=== PATIENT | male | born 1955 | race Caucasian/White ===

== ENCOUNTER 2016-12-19 10:37 | Inpatient (IN) ==
[2016-12-19] MEDS ORDERED: ENOXAPARIN 100 MG/ML SYRINGE SUBCUT STA (11:06)
[2016-12-19] MEDS ORDERED: ASPIRIN 325 MG TABLET PO STA (11:06)
[2016-12-19] MEDS ORDERED: NITROGLYCERIN 2% OINT 1 INCH/GM PACK TOP STA (11:06)
[2016-12-19] MEDS ORDERED: ALUM/MAG/SIMETH/LIDO VISC 1:1 30 ML BOTTLE PO STA (11:06)
[2016-12-19] MEDS ORDERED: ONDANSETRON 4 MG/2 ML VIAL IV PRN (11:06)
[2016-12-19] MEDS ORDERED: NITROGLYCERIN SL 0.4 MG TABLET SL PRN (11:06)
--- NOTE | 2016-12-19 11:09 | Emergency Department Note ---
Arrival - Arrival Chief Complaint: Chest Pain Stated Complaint: blood pressure feels up chest pain ED Nursing Triage Note: pt ambulatory to triage with c/o having chest pain with tightness to left side and left arm pain. pain between shoulder blades. 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 pt states bp has also been elevated at home. Mode of Arrival: Ambulatory Limitations: No Limitations Source: Patient, Family, RN Notes Reviewed Time Seen by Provider: 12/19/16 11:02 - History of Present Illness HPI Narrative: Patient is a 61-year-old white male with no history of coronary artery disease who presents with a left sided chest tightness radiating to his left arm which began 2 days ago after eating. This reoccurred with eating yesterday. The patient denies exertional chest discomfort. He did have some associated nausea and some diaphoresis associated with his pain. His pain is now totally resolved. He denies immediate family history of hyper of coronary artery disease. He denies diabetes mellitus or hypertension. Patient does smoke cigarettes. Onset (ago): day(s) (2) Consistency: intermittent Severity: moderate Quality: aching Allergies/Adverse Reactions: Allergies Allergy/AdvReac Type Severity Reaction Status Date / Time acetaminophen [From [place]] Allergy ITCHING Verified 12/19/16 10:56 hydrocodone [From [place]] Allergy ITCHING Verified 12/19/16 10:56 Home Medications: Home Medications Medication Instructions Recorded Confirmed Type Metoclopramide Tab [Reglan Tab] 5 mg PO ACHS #20 tablet 06/28/16 Rx Polyethylene Glycol Powder 17 gm PO DAILY #12 pack 06/28/16 Rx [Miralax] Review of System - Review of System 12 point system: reviewed and no additional remarkable complaints except as stated - Review of System Constitutional: Present: diaphoresis. Absent: chills, fever Cardiovascular: Present: chest pain. Absent: palpitations Gastrointestinal: Present: abdominal pain, vomiting. Absent: nausea Medical,Surgical,& Family Hx - Medical History Medical History: noncontributory - Surgical History HEENT Surgeries: Surgical HX of: Eye Surgery (CATARACT) - Family History Family History: Reports;: Family Cancer, Family Diabetes, Family Heart Disease, Family Hypertension, Family Stroke - Social History Smoking Status: Current every day smoker Frequency of Alcohol Use: None Type of Drug Use: None Exam Vital Signs: Vital Signs Temperature 98.0 F 12/19/16 12:41 Pulse Rate 95 H 12/19/16 12:41 Respiratory Rate 18 12/19/16 12:41 Blood Pressure 151/93 12/19/16 12:41 O2 Sat by Pulse Oximetry 98 12/19/16 11:28 GENERAL: This is a well-nourished well-developed white male in no apparent distress. VITAL SIGNS: Reviewed HEENT: Head is atraumatic and normocephalic. Pupils are equal round react to light. Extraocular movements are intact. Oropharynx is benign with moist mucous membranes. NECK: Neck is soft and supple without tenderness. There are no masses. There is no lymphadenopathy. LUNGS: Lungs are clear to auscultation. Chest rises symmetrically. There is no chest wall tenderness. CV: Heart is regular rate and rhythm without murmurs rubs or gallops. ABDOMEN: Abdomen is soft, nontender to palpation. There are no abdominal abnormal masses palpated. There is no organomegaly. Bowel sounds are present and active. SKIN: Skin is warm and dry. No rash. EXTREMITIES: Patient has full range of motion without tenderness. There is no pedal edema. NEUROLOGIC: Awake alert and oriented 4. Cranial nerves II through XII are grossly intact. Motor is 5 over 5 in all extremities bilaterally. Course - Consultations Consultation #1: Discussed with cardiology. Patient will be admitted to their service. Patient will be taken to the [facility] for PCI. Time: 13:29 Results - Labs CBC & BMP: 12/19/16 11:50 12/19/16 11:50 Lab Results: I have reviewed the patients labs Labs: Laboratory Tests 12/19/16 11:50 Troponin I 0.351 H - EKG EKG results: interpreted by ERMD - Impressions EKG: Sinus rhythm with marked sinus arrhythmia, rate 84, right bundle branch block, left axis deviation, nonspecific ST-T wave changes - Diagnostic Findings Procedure: Chest x-ray: image reviewed by me (No cardiomegaly, no pleural effusions, no infiltrates.) Disposition Clinical Impression: Chest pain, Unstable angina, Hyperglycemia, Nicotine addiction Case discussed with: patient Disposition: Still a Patient Condition: Stable Additional Instructions: Patient is to discontinue smoking cigarettes.
--- NOTE | 2016-12-19 11:29 | XRay Report ---
Portable chest Date: 12/19/2016 Clinical history: Chest pain Comparison: 12/01/2010 Technique: Portable AP sitting chest Findings: The heart is normal in size. Minimal diffuse parenchymal findings at the lung bases. Minimal relative elevation of the left hemidiaphragm. Stable mediastinum and osseous structures. Impression: Minimal relative elevation of the left hemidiaphragm. Minimal atelectasis/edema at the lung bases. PROCEDURE INTERPRETED AT [facility] DEPARTMENT OF RADIOLOGY Final Report Signed by: Dr. Alisa Avelar
[2016-12-19] MEDS ORDERED: ENOXAPARIN 100 MG/ML SYRINGE SUBCUT ONE (11:38)
[2016-12-19] MEDS ORDERED: NITROGLYCERIN 2% OINT 1 INCH/GM PACK TOP ONE (11:38)
[2016-12-19] MEDS ORDERED: ALUM/MAG/SIMETH/LIDO VISC 1:1 30 ML BOTTLE PO ONE (11:38)
[2016-12-19] MEDS ORDERED: ASPIRIN 325 MG TABLET ONE (11:38)
[2016-12-19 12:02] LABS: Basophils # 0.1 10*3/uL (0.0-0.2); Basophils % 0.7 % (0.0-0.8); Eosinophils # 0.2 10*3/uL (0.0-0.87); Eosinophils % 2.9 % (0.00-10.9); Hematocrit 46.2 VOL% (42.0-52.0); Hemoglobin 16.2 GM/DL (14.0-18.0); Immature Granulocytes % 0.4 %; Immature Granulocytes Absolute 0.03 #; Lymphocytes # 1.5 10*3/uL (1.4-4.0); Lymphocytes % 22.2 % (21.2-54.2); Mean Corpuscular HGB Conc 35.1 GM/DL (32-36); Mean Corpuscular Hemoglobin 30 PG (27-34); Mean Corpuscular Volume 85.7 FL (87-102); Mean Platelet Volume 9.9 FL (9.6-12.0); Monocytes # 0.4 10*3/uL (0.11-0.8); Monocytes % 6.2 % (1.7-12.7); Neutrophils # 4.6 10*3/uL (1.4-7.4); Neutrophils % 67.6 % (38.7-73.9); Platelet Count 236 T/CUMM (130-400); Red Blood Count 5.39 MC/CUMM (3.8-5.5); Red Cell Distribution Width 12.9 % (9.3-17.3); White Blood Count 6.8 T/CUMM (4-12)
[2016-12-19 12:18] LABS: PT Patient Result 10.7 SECS; Partial Thromboplastin Time 27.3 SECS (0-40)
[2016-12-19 12:26] LABS: Apearance,Urine CLEAR (Clear); Bilirubin,Urine Negative (Negative); Blood, Urine Negative (Negative); Glucose,Urine (UA) >=500 mg/dL (Negative); Ketones,Urine Negative (Negative); Mucus,Urine Occasional /LPF (Occasional); Nitrite,Urine Negative (Negative); Protein,Urine Negative; RBC,Urine 1 /HPF (0-4); Urine Color Yellow (Yellow)
[2016-12-19 12:30] LABS: Barbiturates Screen,Urine Negative (Negative); Benzodiazepines Screen,Urine Negative (Negative); Cannabinoid Screen,Urine Negative (Negative); Opiate Screen,Urine Negative (Negative); Phencyclidine Screen,Urine Negative (Negative)
[2016-12-19 12:37] LABS: Albumin 3.6 G/DL (3.4-5.0); Bilirubin,Total 0.4 MG/DL (0.2-1.0); Calcium 9.2 MG/DL (8.5-10.1); Magnesium 2.4 MG/DL (1.8-2.4); Osmolality,Calculated 281.8 MOS/KG (273-304); Potassium 4.2 MMOL/L (3.5-5.1); Total Protein 6.8 G/DL (6.4-8.3)
--- NOTE | 2016-12-19 13:56 | Cardiology History & Physical ---
Assessment and Plan - Time spent with patient Time spent with patient: Greater than 30 minutes Time spent discussing smoking cessation with patient: 3 to 10 minutes (1) Elevated blood pressure reading Status: Acute Assessment and plan: SEE PLAN CARE LISTED BELOW Current Visit: Yes (2) Tobacco abuse Status: Chronic Assessment and plan: SEE PLAN CARE LISTED BELOW Current Visit: Yes (3) Chest pain Status: Acute Assessment and plan: SEE PLAN CARE LISTED BELOW Current Visit: Yes (4) Hyperglycemia Status: Acute Assessment and plan: SEE PLAN CARE LISTED BELOW Current Visit: Yes (5) Nicotine addiction Status: Chronic Assessment and plan: SEE PLAN CARE LISTED BELOW Current Visit: Yes Qualifiers: Nicotine product type: cigarettes History of Present Illness Chief complaint: chest pain History of present illness: [employer]: (NEW) DR. VICENTE Patient is being seen in the emergency department. Mr. Alaniz, 61WM, with risk factors significant for: family history of coronary artery disease, tobaccoism, possible hypertension, possible new onset diabetes. For the past 2 evenings, patient has experienced left-sided chest pain radiating to his neck and down his left arm, described as tightness. This has occurred at various times including with exertion and at rest. Not associated with shortness of breath, nausea or vomiting. Chest discomfort lasted several minutes at a time. He can identify no aggravating nor any alleviating factors. He rates the discomfort as a 7 on a scale of 1-10 and he is currently chest pain-free. He has never experienced this type of discomfort before. Upon arrival to the ER, EKG is abnormal and troponin is elevated at 0.351. He has received Aspirin, Lovenox, low-dose beta-fatemeh, nitro paste, lipid-lowering agent. Of note, patient's d-dimer is 0.8. He has described left lower extremity swelling and pain over the past week. Venous ultrasound is pending. Patient's blood pressure is significantly elevated and they have noted an elevation at home as well. He does not routinely follow up with physicians and therefore does not routinely monitor his blood pressure other than recently. It has been elevated and I suspect, hypertension will be a new diagnosis. Also, patient's blood glucose is 268. He has never had a diagnosis of diabetes. He did eat 2 bowls of frosted flakes and coffee with sugar in it this morning. Will check a hemoglobin A1c for additional information. Dr. Vicente is present. He has seen, examined this patient. He has discussed the case with the patient and his sister. At this time, will keep the patient NPO. and scheduled for cardiac catheterization this afternoon. Continue to cycle cardiac biomarkers, EKG. ASSESSMENT/PLAN: 1. CHEST PAIN - concerning for angina. Troponin elevated 0.3. EKG is abnormal. [facility] cardiac catheterization this afternoon to be performed by Dr. Christina. At this time, due to patient's concern regarding his personal finances, will not order an echocardiogram but may evaluate his LV function with left ventriculogram during cardiac catheterization. 2. ABNORMAL EKG - further work-up to include LHC. 3. ELEVATED BLOOD GLUCOSE - suspicious for new diagnosis of diabetes. Hemoglobin A1c 4. ELEVATED BLOOD PRESSURE - suspicious for new diagnosis of hypertension. Giving beta-fatemeh at this time 5. UNKNOWN LIPID STATUS - lipid profile in the morning. He is being given Atorvastatin now and each evening 6. LEG PAIN AND EDEMA - d-dimer mildly elevated. Currently undergoing venous ultrasound bilateral lower extremity. 7. TOBACCO USE - greater than 5 minutes was spent today discussing the merits of tobacco cessation Home Medications Medication Instructions Recorded Confirmed Type Metoclopramide Tab [Reglan Tab] 5 mg PO ACHS #20 tablet 06/28/16 Rx Polyethylene Glycol Powder 17 gm PO DAILY #12 pack 06/28/16 Rx [Miralax] Allergies Allergy/AdvReac Type Severity Reaction Status Date / Time acetaminophen [From [place]] Allergy ITCHING Verified 12/19/16 10:56 hydrocodone [From [place]] Allergy ITCHING Verified 12/19/16 10:56 Review of systems: REVIEW OF SYSTEMS: - Constitutional Constitutional: Present: Fatigue. Absent: syncope, anorexia, night sweats - EENT Eyes: Absent: blurry vision, loss of vision, diplopia Ears: Absent: decreased hearing, ear pain, ear discharge - Cardiovascular Cardiovascular: Present: chest pain with exertion and at rest. Recent edema left lower extremity, pain. Denies dyspnea on exertion, palpitations. Absent: chest pain with deep breath, claudication - Respiratory Respiratory: Denies: RAMON, cough. Absent: wheezing, hemoptysis, change in phlegm color - Gastrointestinal Gastrointestinal: Present: constipation. Absent: abdominal pain, hematemesis , hematochezia, melena, change in bowel habits, nausea - Genitourinary Genitourinary: Absent: difficulty urinating, dysuria, urinary hesitancy, flank pain - Musculoskeletal Musculoskeletal: Present: back pain Absent: joint swelling, muscle cramps, muscle weakness - Neurological Neurological: Present: normal gait without frequent falls. Absent: dizziness, hemiparesis - Psychiatric Psychiatric: Absent: anxiety, depression, difficulty concentrating - Endocrine Endocrine: Present: fatigue. Absent: cold intolerance, heat intolerance, polyuria, polyphagia, polydipsia - Hematologic/Lymphatic Hematologic/Lymphatic: Present: easy bruising. Absent: easy bleeding -Integumentary Integumentary: Absent: lesions, rashes, skin breakdown Medical,Surgical,& Family Hx - Medical History Cardio: No history of: CAD, Hypertension, ND Endocrine: No history of: Diabetes Mellitus (IDDM) - Surgical History HEENT Surgeries: Surgical HX of: Eye Surgery (CATARACT) - Family History Family History: Reports;: Family Cancer, Family Diabetes, Family Heart Disease, Family Hypertension, Family Stroke - Social History Smoking Status: Current every day smoker Have you smoked in the last 12 months: Yes Time spent discussing smoking cessation with patient: 3 to 10 minutes Frequency of Alcohol Use: None Type of Drug Use: None Marital Status: Single Lives With:: Alone Functional capacity: independent ambulation Cardiology Physical Exam - Constitutional Vitals: Vital Signs Temp Pulse Resp BP Pulse Ox 98.0 F 95 H 18 151/93 98 12/19/16 12:41 12/19/16 12:41 12/19/16 12:41 12/19/16 12:41 12/19/16 11:28 Intake and Output 12/18/16 12/19/16 12/19/16 23:59 07:59 15:59 Other: Weight 93.44 kg Patient Weight 12/19/16 23:59 Weight 93.44 kg Exam: General: [Appears well with no apparent distress.] [Pleasant and cooperative. ] [Appears comfortable.] HEENT: [PERRL, normocephalic, atraumatic. Mucous membranes moist. No jaundice noted. Conjunctiva moist and clear, sclerae anicteric] Neck: No JVD/HJR, no thyromegaly or lymphadenopathy noted. No carotid bruit appreciated Cardiac: [Regular rate and rhythm.] [No obvious murmur rub or gallop.] Lungs: [Clear to auscultation without accessory muscle use to assist the respiratory pattern.] Not requiring oxygen Abdomen: Soft, bowel sounds normoactive. Nontender and nondistended. No abdominal bruit or thrill noted. No masses noted. Musculoskeletal: No fluid collection. Decreased range of motion is noted. Extremities: No clubbing, cyanosis noted. [Trace left lower extremity edema noted, tenderness to touch.] Upper extremity pulses 2+. Lower extremity pulses 2+. Capillary refill less than 3 seconds. Skin: No unusual lesions or rashes. No skin breakdown appreciated. Neuro: Awake, alert and oriented 3. Moves all extremities well without hemiparesis or paralysis. No essential tremor is appreciated. Result/EKG - Labs CBC & BMP: 12/19/16 11:50 12/19/16 11:50 Lab Results: I have reviewed the past 24 hour labs Labs: Laboratory Results - last 24 hr 12/19/16 12/19/16 12/19/16 11:50 11:50 11:50 WBC 6.8 RBC 5.39 Hgb 16.2 Hct 46.2 MCV 85.7 L MCH 30 MCHC 35.1 RDW 12.9 Plt Count 236 MPV 9.9 Neut % (Auto) 67.6 Lymph % (Auto) 22.2 [place] % (Auto) 6.2 Eos % (Auto) 2.9 Baso % (Auto) 0.7 Neut # (Auto) 4.6 Lymph # (Auto) 1.5 [place] # (Auto) 0.4 Eos # (Auto) 0.2 Baso # (Auto) 0.1 Immature Gran % 0.4 Nucleated RBC % 0.0 Immature Gran # 0.03 Nucleated RBCs # 0.00 Immature Plt Fraction 0.0 INR 1.0 PT Patient/Control Mix 10.7 Circ Anticoag PTT 27.3 Sodium 137 Potassium 4.2 Chloride 105 Carbon Dioxide 27 Anion Gap 9.2 BUN 12 Creatinine 1.10 GFR Calculation 91 BUN/Creatinine Ratio 10.00 Glucose 268 H Calculated Osmolality 281.8 Calcium 9.2 Magnesium 2.4 Total Bilirubin 0.40 AST 17 ALT 26 Alkaline Phosphatase 74 Troponin I Total Protein 6.8 Albumin 3.6 Globulin 3.2 Albumin/Globulin Ratio 1.1 Urine Color Urine Appearance Urine pH Ur Specific [place] Urine Protein Urine Glucose (UA) Urine Ketones Urine Blood Urine Nitrate Urine Bilirubin Urine Urobilinogen Urine Leukocytes Urine RBC Urine Mucus Ur Culture Indicated? Urine Opiates Screen Ur Barbiturates Screen Ur Phencyclidine Scrn U Amphetamine/Methamph U Benzodiazepines Scrn U Cocaine Metab Screen U Cannabinoids Screen 12/19/16 12/19/16 12/19/16 11:50 12:12 12:12 WBC RBC Hgb Hct MCV MCH MCHC RDW Plt Count MPV Neut % (Auto) Lymph % (Auto) [place] % (Auto) Eos % (Auto) Baso % (Auto) Neut # (Auto) Lymph # (Auto) [place] # (Auto) Eos # (Auto) Baso # (Auto) Immature Gran % Nucleated RBC % Immature Gran # Nucleated RBCs # Immature Plt Fraction INR PT Patient/Control Mix Circ Anticoag PTT Sodium Potassium Chloride Carbon Dioxide Anion Gap BUN Creatinine GFR Calculation BUN/Creatinine Ratio Glucose Calculated Osmolality Calcium Magnesium Total Bilirubin AST ALT Alkaline Phosphatase Troponin I 0.351 H Total Protein Albumin Globulin Albumin/Globulin Ratio Urine Color Yellow Urine Appearance Clear Urine pH 6.0 Ur Specific [place] 1.020 Urine Protein Negative Urine Glucose (UA) >=500 Urine Ketones Negative Urine Blood Negative Urine Nitrate Negative Urine Bilirubin Negative Urine Urobilinogen 4.0 H Urine Leukocytes Negative Urine RBC 1 Urine Mucus Occasional Ur Culture Indicated? Not indicated Urine Opiates Screen Negative Ur Barbiturates Screen Negative Ur Phencyclidine Scrn Negative U Amphetamine/Methamph Negative U Benzodiazepines Scrn Negative U Cocaine Metab Screen Negative U Cannabinoids Screen Negative - Diagnostic Findings Procedure: Chest x-ray: report reviewed by me - EKG EKG results: interpreted by me EKG shows: sinus rhythm
[2016-12-19] MEDS ORDERED: MAGNESIUM SULF RIDER 2 GM in PREMIX 1 EACH IV PRN (14:00)
[2016-12-19] MEDS ORDERED: POTASSIUM CHLORIDE 20 MEQ TABLET PO PRN (14:00)
[2016-12-19] MEDS ORDERED: ATORVASTATIN 40 MG TABLET PO ONE (14:06)
[2016-12-19] MEDS ORDERED: METOPROLOL SUCCINATE XL 25 MG TABLET PO ONE (14:08)
--- NOTE | 2016-12-19 14:15 | EKG Report ---
Stationary ECG Study [facility] ER Test Date: 12/19/2016 2:13:11 PM Pat Name: ARABELLA LY Department: Room: 114 Gender: M Or Manager: : 1955 Requested by: Juan Manuel Huang Order Number: [id number] Reading MD: JOSE GRAMAJO Intervals [place] Rate: 75 P: 21 NM: 153 QRS: -43 QRSD: 112 T: -7 QT: 378 QTc: 406 Interpretive Statements SINUS RHYTHM MARKED LEFT AXIS DEVIATION INCOMPLETE RIGHT BUNDLE BRANCH BLOCK Electronically Signed On 12-20-16 15:50:26 CDT by JOSE GRAMAJO [email or web address]
[2016-12-19] MEDS ORDERED: ATORVASTATIN 40 MG TABLET ONE (14:23)
--- NOTE | 2016-12-19 14:24 | Ultrasound Report ---
US venous doppler LE BI Indication: Lower extremity swelling and pain. Comparison: None. Technique: Using a transcutaneous probe, grayscale, spectral Doppler, and color Doppler images of the bilateral lower extremity venous structures were captured and stored. Grayscale images prior to and following compression were obtained. Interrogated venous structures include the bilateral common femoral vein, superficial femoral vein (proximal, mid, and distal), and popliteal vein. Findings: There is no evidence of thrombus within the interrogated venous structures. the interrogated venous segments demonstrate presence of both color flow and spectral flow. Impression: 1. No evidence of venous thrombosis. 12/19/2016 2:21 PM PROCEDURE INTERPRETED AT [facility] DEPARTMENT OF RADIOLOGY Final Report Signed by: Dr. Victor M Arnold
[2016-12-19] MEDS ORDERED: LIDOCAINE 1% 20 ML VIAL ONE (14:28)
[2016-12-19] MEDS ORDERED: HEPARIN/NACL 0.9% 2 UNITS/ML 1,000 ML IV ONE (14:28)
--- NOTE | 2016-12-19 15:08 | History and Physical Update ---
Sedation H&P Update - History and Physical H&P was reviewed, the patient examined and there: are no changes in the patients condition since last H&P was completed. - Dictation Physical: refer to scanned H&P - Physical Exam Mental Status: alert and oriented Heart: regular rate and rhythm Lung: clear to auscultation Abdomen: within normal limits Vitals: within normal limits - Sedation Plan for Sedation: moderate Patient Consent: Procedure disscussed with patient and patinet has consented., Risks and benefits were discussed with patient,including infection,, bleeding, injury to surrounding structures, seizure, temporary nerve, Patient understands and accepts potential risks/benefits and agrees to, proceed. ASA Class: II Airway Assessment: Class II: Soft palate, uvula, fauces visible
[2016-12-19] MEDS ORDERED: BIVALIRUDIN 250 MG VIAL IV ONE (15:34)
[2016-12-19] MEDS ORDERED: NITROGLYCERIN DRIP 50 MG/250 ML BOTTLE IV ONE (16:08)
[2016-12-19] MEDS ORDERED: TICAGRELOR 90 MG TABLET ONE (16:19)
[2016-12-19] MEDS ORDERED: MORPHINE 10 MG/1 ML VIAL ONE (16:32)
--- NOTE | 2016-12-19 16:35 | EKG Report ---
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
[2016-12-19] MEDS: NITROGLYCERIN DRIP 50 MG/250 ML BOTTLE IV SCH (16:42)
--- NOTE | 2016-12-19 17:03 | Cardiac Catheterization ---
Date of Procedure:: 12/19/16 Pre-op Diagnosis: Chest pain non-Q-wave SD Post-op diagnosis: same Implants: Successful proximal LAD stent 3.0 x 18 mm synergy drug-eluting, postdilated 14 socorro creating a 3.15 mL lumen. Successful immediate stent 3.0 x 12 mm synergy drug-eluting stent, postdilated 16 socorro creating a 3.21 mm lumen. Good result obtained. Anesthesia: moderate conscious sedation Surgeon / Physician: Lasha Christina Estimated blood loss: minimal Specimens: none sent Condition: stable Disposition: ICU/CCU - Discharge Disposition: Still a Patient Condition at Discharge: Stable - Medications / Follow-up
--- NOTE | 2016-12-19 17:16 | Cardiology Operative Report ---
Date of Procedure:: 12/19/16 Post-op diagnosis: same Procedure: Cardiac catheterization procedure note #1 left heart catheterization #2 selective coronary angiography #3 left ventriculography #4 successful proximal LAD stent #5 successful ostial intermediate stent Omnipaque was used for the procedure Description of procedure The patient presented with chest pain and a non-Q-wave AL and was taken to the [facility]. Following sterile preparation draping of the right groin local anesthesia was achieved by infiltration 1% Xylocaine. Using a Cook needle the right femoral artery was cannulated and a #6 sheath was inserted. A 6 Japanese pigtail catheter was advanced retrograde across aortic valve into the left ventricle and the end-diastolic pressure was recorded. Left ventriculography was performed the ROSARIO projection using 24 cc of contrast. A pullback was made across aortic valve. The pigtail catheter was exchanged for a 6 Japanese left Santos catheter and left coronary angiography was performed in several ROSARIO and KYRGYZ projections. The catheter change for a 6 Japanese right Amplatz catheter and right coronary angiography was performed in the KYRGYZ projection only. The catheter was exchanged for a 6 Japanese left Santos guiding catheter and the left main was recannulated. The patient received aspirin and Lovenox. A low water flex wire was used and advanced in this LAD. Direct stenting was performed in the proximity using a 3.0 x 18 mm synergy drug-eluting stent. The maximum inflation pressure was at 14 socorro for 30 seconds, creating a 3.15 mm lumen. The balloon was then deflated and brought back to the guiding catheter guidewire across the lesion repeat angiography widely patent vessel with absent narrowing no dissection and brisk runoff. The guide was then redirected into the intermediate branch and direct stenting was performed with a 3.0 x 12 motor synergy drug-eluting stent. The maximum inflation pressure was 16 and measures for 30 seconds, creating a 3.21 mm lumen. The balloon was then deflated and brought back to the guiding catheter going to guidewire across the lesion. Repeat angiograms a widely patent vessel with brisk runoff no dissection. there was some plaque shift into the proximal LAD which was mild. The guiding catheter and sheath were then removed and the femoral arteriotomy site was sealed percutaneously minx closure device with prompt cessation of bleeding and probably turn up from 1 foot pulses. The patient transported to CCU in stable condition. Hemodynamic data Aortic pressure 101/55 mean 72 left ventricle 101/10 Selective coronary angiography The left main trunk is widely patent and trifurcates. The LAD is a large vessel wraps on the apex. There is an 80% stenosis after the first septal and diagonal branch. The diagonal branch is patent. There is severe apical LAD disease. The intermediate branch has a 99% ostial stenosis and is quite hazy with FELIZ grade II flow. The circumflex is large and tortuous and has mild irregularities only. The dominant right coronary has a 80% ostial narrowing and an 80% stenosis of the mid vessel. Left ventriculography Ejection fraction 50-55% with inferoapical hypokinesis. No mitral regurgitation. Conclusions #1 LVEDP 10 #2 ejection fraction 50-55% with inferoapical hypokinesis #3 no mitral regurgitation #4 no aortic valve gradient #5 left main trunk-patent #6 LAD-80% proximal after first septal diagonal #7 diagonal branch-patent #8 intermediate branch-99% ostial stenosis, hazy with FELIZ grade II flow #9 circumflex system-large, tortuous, mild irregularities only #10 dominant right coronary-80% ostial and 80% mid stenosis #11 successful proximal LAD stent. An 80% stenosis reduced to mild irregularities with a 3.0 x 18 mm synergy drug-eluting stent. The maximum inflation pressure was 14 socorro for 30 seconds, creating a 3.15 mm lumen. Good result obtained. #12 successful intermediate stent. A 99% ostial hazy stenosis was reduced to mild irregularities with a 3.0 x 12 mm synergy drug-eluting stent, maximum inflation pressure 16 diameters for 30 seconds, creating a 3.21 mm lumen. FELIZ grade III flow restored. Disposition The patient had a small non-Q-wave infarction involving the large intermediate branch which was stented with a 3.0 x 12 mm Synergy drug-coated stent, postdilated 3.21 mm lumen with christianity of FELIZ grade III flow. He also underwent stenting of the proximal LAD with a 3.0 x 18 mm Synergy drug-eluting stent, postdilated 3.15 mm lumen. He will remain on Lovenox and IV nitro and normal saline hydration. He will be brought back to the [facility] for RCA intervention in the next 24-48 hours. Continue aspirin Brilinta and statin therapy. Cine pictures reviewed with his 2 sisters. In addition, he will require aggressive lifestyle change and risk factor modification. -99% ostial stenosis Anesthesia: moderate conscious sedation Surgeon / Physician: Lasha Christina Estimated blood loss: minimal Specimens: none sent Condition: stable Disposition: ICU/CCU
[2016-12-19] MEDS ORDERED: ACETAMINOPHEN 325 MG TABLET PO PRN (17:17)
[2016-12-19] MEDS ORDERED: ZALEPLON 5 MG CAPSULE PO PRN (17:17)
[2016-12-19] MEDS: SODIUM CHLORIDE 0.9% 1,000 ML IV SCH (19:10)
[2016-12-19] MEDS: PANTOPRAZOLE 40 MG TABLET PO SCH (19:10)
[2016-12-19] MEDS: TICAGRELOR 90 MG TABLET PO SCH (22:26)
[2016-12-19] MEDS: ATORVASTATIN 20 MG TABLET PO SCH (22:26)
[2016-12-20] MEDS: CLORAZEPATE 7.5 MG TABLET PO PRN ×2 (00:57→19:34)
[2016-12-20 03:02] LABS: Basophils # 0.1 10*3/uL (0.0-0.2); Basophils % 0.5 % (0.0-0.8); Eosinophils # 0.2 10*3/uL (0.0-0.87); Eosinophils % 1.8 % (0.00-10.9); Hematocrit 39.2 VOL% (42.0-52.0); Hemoglobin 13.9 GM/DL (14.0-18.0); Immature Granulocytes % 0.3 %; Immature Granulocytes Absolute 0.03 #; Lymphocytes # 1.2 10*3/uL (1.4-4.0); Lymphocytes % 11.6 % (21.2-54.2); Mean Corpuscular HGB Conc 35.5 GM/DL (32-36); Mean Corpuscular Hemoglobin 30 PG (27-34); Monocytes # 0.8 10*3/uL (0.11-0.8); Monocytes % 8.5 % (1.7-12.7); Neutrophils # 7.7 10*3/uL (1.4-7.4); Neutrophils % 77.3 % (38.7-73.9); Platelet Count 209 T/CUMM (130-400); Red Blood Count 4.61 MC/CUMM (3.8-5.5); White Blood Count 9.9 T/CUMM (4-12)
[2016-12-20] MEDS: SODIUM CHLORIDE 0.9% 1,000 ML IV SCH (03:03)
[2016-12-20 03:30] LABS: Calcium 8.1 MG/DL (8.5-10.1); Osmolality,Calculated 278.5 MOS/KG (273-304); Potassium 4.1 MMOL/L (3.5-5.1)
[2016-12-20 03:37] LABS: Albumin 3.1 G/DL (3.4-5.0); Bilirubin,Total 0.6 MG/DL (0.2-1.0); Calcium 8.2 MG/DL (8.5-10.1); Osmolality,Calculated 277.7 MOS/KG (273-304); Potassium 4.1 MMOL/L (3.5-5.1); Risk Ratio 8.85; Total Protein 5.6 G/DL (6.4-8.3); VLDL CHOLESTEROL 64.6 MG/DL
[2016-12-20 03:46] LABS: Troponin I Only 0.721 NG/ML (0.00-0.045)
[2016-12-20] MEDS: traMADol 50 MG TABLET PO PRN ×2 (05:44→19:33)
--- NOTE | 2016-12-20 06:04 | EKG Report ---
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
--- NOTE | 2016-12-20 06:44 | Cardiology Progress Note ---
Cardiology - PN: Subj Interval history: Cardiology note 61-year-old man status post non-Q-wave infarction. Status post intermediate branch stent and proximal LAD stent yesterday. Ejection fraction 50-55%. No chest pain last night. On IV nitro. Telemetry shows steady sinus rhythm O2 sat 97 on 2 L cannula Regular rhythm no murmur or gallop Decreased breath sounds but fairly clear Abdomen benign. Right groin has small ecchymotic bruise but no bruit or hematoma Lab data today White count 9.9 hemoglobin 13.9 hematocrit 39.2 Sodium 139 potassium 4.1 chloride 109 CO2 23 BUN 11 creatinine 0.90 Troponin I 0.040 HDL 20 LDL 114 cholesterol 177 triglycerides 323 Impression Status post small posterior non-Q-wave infarction Status post intermediate branch stent and proximal LAD stent with EF 50-55% Active smoker Hyperlipidemia Hypertension Plan Continue IV nitro continue normal saline Stent RCA today. Discussed with patient and his sister Quin. Nurse present for the entire discussion. Continue Brilinta 90 mg twice daily and aspirin 81 mg daily Continue atorvastatin 20 mg daily Exam (Progress Note) - Constitutional Vitals: Period Temp Pulse Resp BP Sys/Stahl Pulse Ox Last 24 Hr 97.9 F-99.6 F 52-95 10-21 98-187/51-94 94-100 Result/EKG - Labs CBC & BMP: 12/20/16 02:45 12/20/16 02:45 Labs: Laboratory Results - last 24 hr 12/19/16 12/19/16 12/19/16 11:50 11:50 11:50 WBC 6.8 RBC 5.39 Hgb 16.2 Hct 46.2 MCV 85.7 L MCH 30 MCHC 35.1 RDW 12.9 Plt Count 236 MPV 9.9 Neut % (Auto) 67.6 Lymph % (Auto) 22.2 [place] % (Auto) 6.2 Eos % (Auto) 2.9 Baso % (Auto) 0.7 Neut # (Auto) 4.6 Lymph # (Auto) 1.5 [place] # (Auto) 0.4 Eos # (Auto) 0.2 Baso # (Auto) 0.1 Immature Gran % 0.4 Nucleated RBC % 0.0 Immature Gran # 0.03 Nucleated RBCs # 0.00 Immature Plt Fraction 0.0 INR 1.0 PT Patient/Control Mix 10.7 D-Dimer, Quantitative Circ Anticoag PTT 27.3 Sodium 137 Potassium 4.2 Chloride 105 Carbon Dioxide 27 Anion Gap 9.2 BUN 12 Creatinine 1.10 GFR Calculation 91 BUN/Creatinine Ratio 10.00 Glucose 268 H Hemoglobin A1c Calculated Osmolality 281.8 Calcium 9.2 Magnesium 2.4 Total Bilirubin 0.40 AST 17 ALT 26 Alkaline Phosphatase 74 Total Creatine Kinase CK-MB (CK-2) Troponin I Total Protein 6.8 Albumin 3.6 Globulin 3.2 Albumin/Globulin Ratio 1.1 Triglycerides Cholesterol LDL Cholesterol VLDL Cholesterol HDL Cholesterol Heart Disease Risk Ratio Urine Color Urine Appearance Urine pH Ur Specific Export Urine Protein Urine Glucose (UA) Urine Ketones Urine Blood Urine Nitrate Urine Bilirubin Urine Urobilinogen Urine Leukocytes Urine RBC Urine Mucus Ur Culture Indicated? Urine Opiates Screen Ur Barbiturates Screen Ur Phencyclidine Scrn U Amphetamine/Methamph U Benzodiazepines Scrn U Cocaine Metab Screen U Cannabinoids Screen 12/19/16 12/19/16 12/19/16 11:50 11:50 11:50 WBC RBC Hgb Hct MCV MCH MCHC RDW Plt Count MPV Neut % (Auto) Lymph % (Auto) [place] % (Auto) Eos % (Auto) Baso % (Auto) Neut # (Auto) Lymph # (Auto) [place] # (Auto) Eos # (Auto) Baso # (Auto) Immature Gran % Nucleated RBC % Immature Gran # Nucleated RBCs # Immature Plt Fraction INR PT Patient/Control Mix D-Dimer, Quantitative 0.8 Circ Anticoag PTT Sodium Potassium Chloride Carbon Dioxide Anion Gap BUN Creatinine GFR Calculation BUN/Creatinine Ratio Glucose Hemoglobin A1c 6.9 H Calculated Osmolality Calcium Magnesium Total Bilirubin AST ALT Alkaline Phosphatase Total Creatine Kinase CK-MB (CK-2) Troponin I 0.351 H Total Protein Albumin Globulin Albumin/Globulin Ratio Triglycerides Cholesterol LDL Cholesterol VLDL Cholesterol HDL Cholesterol Heart Disease Risk Ratio Urine Color Urine Appearance Urine pH Ur Specific Export Urine Protein Urine Glucose (UA) Urine Ketones Urine Blood Urine Nitrate Urine Bilirubin Urine Urobilinogen Urine Leukocytes Urine RBC Urine Mucus Ur Culture Indicated? Urine Opiates Screen Ur Barbiturates Screen Ur Phencyclidine Scrn U Amphetamine/Methamph U Benzodiazepines Scrn U Cocaine Metab Screen U Cannabinoids Screen 12/19/16 12/19/16 12/19/16 12:12 12:12 18:00 WBC RBC Hgb Hct MCV MCH MCHC RDW Plt Count MPV Neut % (Auto) Lymph % (Auto) [place] % (Auto) Eos % (Auto) Baso % (Auto) Neut # (Auto) Lymph # (Auto) [place] # (Auto) Eos # (Auto) Baso # (Auto) Immature Gran % Nucleated RBC % Immature Gran # Nucleated RBCs # Immature Plt Fraction INR PT Patient/Control Mix D-Dimer, Quantitative Circ Anticoag PTT Sodium Potassium Chloride Carbon Dioxide Anion Gap BUN Creatinine GFR Calculation BUN/Creatinine Ratio Glucose Hemoglobin A1c Calculated Osmolality Calcium Magnesium Total Bilirubin AST ALT Alkaline Phosphatase Total Creatine Kinase 77 CK-MB (CK-2) 2.0 Troponin I 1.040 H D Total Protein Albumin Globulin Albumin/Globulin Ratio Triglycerides Cholesterol LDL Cholesterol VLDL Cholesterol HDL Cholesterol Heart Disease Risk Ratio Urine Color Yellow Urine Appearance Clear Urine pH 6.0 Ur Specific Export 1.020 Urine Protein Negative Urine Glucose (UA) >=500 Urine Ketones Negative Urine Blood Negative Urine Nitrate Negative Urine Bilirubin Negative Urine Urobilinogen 4.0 H Urine Leukocytes Negative Urine RBC 1 Urine Mucus Occasional Ur Culture Indicated? Not indicated Urine Opiates Screen Negative Ur Barbiturates Screen Negative Ur Phencyclidine Scrn Negative U Amphetamine/Methamph Negative U Benzodiazepines Scrn Negative U Cocaine Metab Screen Negative U Cannabinoids Screen Negative 12/20/16 12/20/16 12/20/16 02:45 02:45 02:45 WBC 9.9 D RBC 4.61 Hgb 13.9 L D Hct 39.2 L MCV 85.0 L MCH 30 MCHC 35.5 RDW 13.0 Plt Count 209 MPV 10.0 Neut % (Auto) 77.3 H Lymph % (Auto) 11.6 L [place] % (Auto) 8.5 Eos % (Auto) 1.8 Baso % (Auto) 0.5 Neut # (Auto) 7.7 H Lymph # (Auto) 1.2 L [place] # (Auto) 0.8 Eos # (Auto) 0.2 Baso # (Auto) 0.1 Immature Gran % 0.3 Nucleated RBC % 0.0 Immature Gran # 0.03 Nucleated RBCs # 0.00 Immature Plt Fraction 0.0 INR PT Patient/Control Mix D-Dimer, Quantitative Circ Anticoag PTT Sodium 138 Potassium 4.1 Chloride 108 H Carbon Dioxide 23 Anion Gap 11.1 BUN 11 Creatinine 0.90 GFR Calculation 119 BUN/Creatinine Ratio 12.00 Glucose 166 H Hemoglobin A1c Calculated Osmolality 277.7 Calcium 8.2 L Magnesium Total Bilirubin 0.60 AST 17 ALT 21 Alkaline Phosphatase 63 Total Creatine Kinase 58 D CK-MB (CK-2) 1.8 Troponin I 0.721 H D Total Protein 5.6 L Albumin 3.1 L Globulin 2.5 Albumin/Globulin Ratio 1.2 Triglycerides 323 H Cholesterol 177 LDL Cholesterol 114.0 VLDL Cholesterol 64.6 HDL Cholesterol 20 L Heart Disease Risk Ratio 8.85 Urine Color Urine Appearance Urine pH Ur Specific Export Urine Protein Urine Glucose (UA) Urine Ketones Urine Blood Urine Nitrate Urine Bilirubin Urine Urobilinogen Urine Leukocytes Urine RBC Urine Mucus Ur Culture Indicated? Urine Opiates Screen Ur Barbiturates Screen Ur Phencyclidine Scrn U Amphetamine/Methamph U Benzodiazepines Scrn U Cocaine Metab Screen U Cannabinoids Screen 12/20/16 02:45 WBC RBC Hgb Hct MCV MCH MCHC RDW Plt Count MPV Neut % (Auto) Lymph % (Auto) [place] % (Auto) Eos % (Auto) Baso % (Auto) Neut # (Auto) Lymph # (Auto) [place] # (Auto) Eos # (Auto) Baso # (Auto) Immature Gran % Nucleated RBC % Immature Gran # Nucleated RBCs # Immature Plt Fraction INR PT Patient/Control Mix D-Dimer, Quantitative Circ Anticoag PTT Sodium 139 Potassium 4.1 Chloride 109 H Carbon Dioxide 23 Anion Gap 11.1 BUN 11 Creatinine 0.90 GFR Calculation 119 BUN/Creatinine Ratio 12.00 Glucose 161 H Hemoglobin A1c Calculated Osmolality 278.5 Calcium 8.1 L Magnesium Total Bilirubin AST ALT Alkaline Phosphatase Total Creatine Kinase CK-MB (CK-2) Troponin I Total Protein Albumin Globulin Albumin/Globulin Ratio Triglycerides Cholesterol LDL Cholesterol VLDL Cholesterol HDL Cholesterol Heart Disease Risk Ratio Urine Color Urine Appearance Urine pH Ur Specific Export Urine Protein Urine Glucose (UA) Urine Ketones Urine Blood Urine Nitrate Urine Bilirubin Urine Urobilinogen Urine Leukocytes Urine RBC Urine Mucus Ur Culture Indicated? Urine Opiates Screen Ur Barbiturates Screen Ur Phencyclidine Scrn U Amphetamine/Methamph U Benzodiazepines Scrn U Cocaine Metab Screen U Cannabinoids Screen Quality Measures - VTE Contraindication to Mechanical VTE Prophylaxis: Trauma to Legs - Stroke Symptom Onset Unknown: No
--- NOTE | 2016-12-20 06:45 | History and Physical Update ---
Sedation H&P Update - History and Physical H&P was reviewed, the patient examined and there: are no changes in the patients condition since last H&P was completed. - Dictation Physical: refer to H&P completed by admitting physician - Physical Exam Mental Status: alert and oriented Heart: regular rate and rhythm Lung: clear to auscultation Abdomen: within normal limits Vitals: within normal limits - Sedation Plan for Sedation: moderate Patient Consent: Procedure disscussed with patient and patinet has consented., Risks and benefits were discussed with patient,including infection,, bleeding, injury to surrounding structures, seizure, temporary nerve, Patient understands and accepts potential risks/benefits and agrees to, proceed. ASA Class: II Airway Assessment: Class II: Soft palate, uvula, fauces visible
--- NOTE | 2016-12-20 07:51 | EKG Report ---
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
[2016-12-20] MEDS: NITROGLYCERIN DRIP 50 MG/250 ML BOTTLE IV SCH ×2 (08:36→18:04)
[2016-12-20] MEDS ORDERED: traMADol 50 MG TABLET PO SCH (09:00)
[2016-12-20] MEDS ORDERED: HEPARIN/NACL 0.9% 2 UNITS/ML 0 ML IV ONE (09:01)
[2016-12-20] MEDS ORDERED: LIDOCAINE 1% 20 ML VIAL ONE ×2 (09:01→10:16)
[2016-12-20] MEDS ORDERED: DIAZEPAM 5 MG TABLET PO ONE (09:16)
[2016-12-20] MEDS ORDERED: diphenhydrAMINE CAP 50 MG CAPSULE PO ONE (09:17)
[2016-12-20] MEDS: ASPIRIN EC 81 MG TABLET PO SCH (09:35)
[2016-12-20] MEDS: TICAGRELOR 90 MG TABLET PO SCH ×3 (09:35→20:49)
[2016-12-20] MEDS: PANTOPRAZOLE 40 MG TABLET PO SCH (09:35)
[2016-12-20 10:14] LABS: Troponin I Only 0.415 NG/ML (0.00-0.045)
[2016-12-20] MEDS ORDERED: HEPARIN/NACL 0.9% 2 UNITS/ML 1,000 ML IV ONE (10:16)
[2016-12-20] MEDS ORDERED: MIDAZOLAM 2 MG/2 ML VIAL ONE (10:39)
[2016-12-20] MEDS ORDERED: HYDROmorphone 2 MG/1 ML VIAL ONE (10:39)
[2016-12-20] MEDS ORDERED: BIVALIRUDIN 250 MG VIAL IV ONE (10:56)
[2016-12-20] MEDS ORDERED: HEPARIN/NACL 0.9% 2 UNITS/ML 500 ML IV ONE (11:04)
[2016-12-20] MEDS ORDERED: NITROGLYCERIN DRIP 50 MG/250 ML BOTTLE IV ONE (11:07)
--- NOTE | 2016-12-20 11:47 | Event Note ---
Patient is currently undergoing staged procedure. He is currently on Brilinta. Due to patient's concern regarding affordability of medications, consider transitioning to Plavix prior to discharge
--- NOTE | 2016-12-20 11:51 | Cardiac Catheterization ---
Date of Procedure:: 12/20/16 Pre-op Diagnosis: Chest pain CAD Post-op diagnosis: same Procedure: Cardiac catheterization procedure note #1 selective coronary angiography #2 successful ostial and mid RCA stents Omnipaque was used for the procedure Description of procedure Following sterile preparation draping of the left groin local anesthesia was achieved by infiltration 1% Xylocaine. Using a Cook needle the left femoral artery was cannulated and a #6 sheath was inserted. A 6 Urdu right Santos guiding catheter was introduced and advanced to the pratibha sending her pressure was recorded. The right coronary was cannulated and a scalpel was obtained. The patient was bolused with Angiomax and placed on infusion per protocol. A [employer]-water flex wire was used and carefully advanced in the distal right coronary. Direct stenting was then performed in the mid lesion using a 2.5 x 18 mm Alpine Zions drug-eluting stent. The maximum inflation pressure 11 socorro for 30 seconds creating a 2.55 mm lumen. The balloon was then withdrawn the guiding catheter and then removed. The ostial stenosis were then stented with a 3.5 x 8 minute Alpine Zions drug-eluting stent. Several flush injections confirmed good positioning of the stent. The maximum inflation pressure was 12 socorro for 30 seconds, creating a 3.60 mm lumen. The balloon was then deflated and brought into the guiding catheter going to guidewire across the lesion repeat angiograms a widely patent vessel with mild residual narrowing, no dissection and brisk runoff. The guiding catheter was exchanged for a 6 Urdu left Santos diagnostic catheter and left coronary atrophy was performed in ROSARIO and ELDER projections and confirmed a widely patent intermediate stent site and a widely patent proximal LAD stent site. There is minimal plaque shifting into the ostial LAD which is nonflow limiting. The catheter and sheath were then removed and the femoral arch Bobby site was sealed percutaneously minx closure device with prompt cessation of bleeding and prompt return of femoral foot pulses. The patient transferred back to CCU in stable condition. Conclusions #1 successful mid RCA stent with a 2.5 x 18 mm Zions Alpine drug-eluting stent, maximum inflation pressure 11 socorro for 30 seconds creating a 2.55 mm lumen. #2 successful ostial RCA stent with a 3.5 x 8 mm Zions drug-eluting stent, maximum inflation pressure of 12 emesis for 30 seconds, creating a 3.60 mm lumen. #3 recheck of the left coronary artery demonstrated a widely patent intermediate ostial stent site and widely patent proximal LAD stent site Disposition The patient status post small non-Q-wave posterior infarction December 19 and underwent stenting of the ostial intermediate branch and stenting of the proximal LAD with good results. Today he returned to the [facility] [facility] and underwent stenting of the ostial right coronary with a 3.5 x 8 mm Zions drug- eluting stent postdilated 3.60 mm lumen and thinning of the mid right coronary with a 2.5 x 18 mm Zions drug-eluting stent, postdilated to a 2.55 in balloon with good results obtained. He remain on aspirin Brilinta and statin therapy and will continue normal saline hydration. In addition he will require aggressive lifestyle change risk factor modification. Cine pictures reviewed with the patient's mother and with his sister Quin. A BMP and CPK troponin rechecked in the morning Implants: Successful ostial RCA stent 3.5 x 8 mm Alpine Zions drug-eluting postdilated 3.60 mm lumen. Successful mid RCA stent 2.5 x 18 mm Zions drug-eluting stent postdilated 2.55 mL lumen. Good results obtained. Surgeon / Physician: Lasha Christina Estimated blood loss: minimal Specimens: none sent Condition: stable Disposition: ICU/CCU - Medications / Follow-up
[2016-12-20] MEDS ORDERED: SODIUM CHLORIDE 0.9% 1,000 ML IV SCH (12:00)
--- NOTE | 2016-12-20 12:06 | EKG Report ---
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
[2016-12-20] MEDS: ATORVASTATIN 20 MG TABLET PO SCH ×2 (19:34→20:49)
[2016-12-21] MEDS: NITROGLYCERIN DRIP 50 MG/250 ML BOTTLE IV SCH ×2 (04:03→21:43)
[2016-12-21 04:39] LABS: Basophils % 0.2 % (0.0-0.8); Eosinophils # 0.1 10*3/uL (0.0-0.87); Eosinophils % 0.5 % (0.00-10.9); Hemoglobin 13.2 GM/DL (14.0-18.0); Immature Granulocytes % 0.5 %; Immature Granulocytes Absolute 0.05 #; Lymphocytes # 1.2 10*3/uL (1.4-4.0); Lymphocytes % 10.4 % (21.2-54.2); Mean Corpuscular HGB Conc 36.7 GM/DL (32-36); Mean Corpuscular Hemoglobin 31 PG (27-34); Mean Corpuscular Volume 83.3 FL (87-102); Mean Platelet Volume 9.9 FL (9.6-12.0); Monocytes # 1.2 10*3/uL (0.11-0.8); Monocytes % 11.1 % (1.7-12.7); Neutrophils # 8.6 10*3/uL (1.4-7.4); Neutrophils % 77.3 % (38.7-73.9); Platelet Count 197 T/CUMM (130-400); Red Blood Count 4.32 MC/CUMM (3.8-5.5); Red Cell Distribution Width 12.7 % (9.3-17.3); White Blood Count 11.1 T/CUMM (4-12)
[2016-12-21 05:03] LABS: Magnesium 2.1 MG/DL (1.8-2.4); Potassium 3.8 MMOL/L (3.5-5.1)
[2016-12-21 05:06] LABS: CKMB % 7.7 %; Calcium 7.9 MG/DL (8.5-10.1); Osmolality,Calculated 270.1 MOS/KG (273-304); Potassium 3.8 MMOL/L (3.5-5.1)
[2016-12-21 05:12] LABS: Troponin I Only 2.62 NG/ML (0.00-0.045)
--- NOTE | 2016-12-21 07:37 | EKG Report ---
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
--- NOTE | 2016-12-21 08:25 | Cardiology Progress Note ---
Cardiology - PN: Subj Interval history: Cardiology note Status post non-Q-wave posterior infarction with intermediate branch stent and LAD stent December 19 Status post ostial and mid RCA stents December 20, 2016. No pain. O2 sat 97% on 2 L Regular rhythm no gallop Decreased breath sounds but clear Abdomen nontender Left groin looks good. No bruit or hematoma. Right groin looks good. Small bruise but no hematoma or bruit Distal pulses 2+ Lab data White count 11.1 hemoglobin 13.2 hematocrit 36.0 Sodium 135 potassium 3.8 chloride 108 CO2 23 BUN 8 creatinine 0.80 Glucose 150 magnesium 2.1 troponin II 0.6 Impression Status post posterior non-Q-wave infarction December 19 with intermediate branch stent and proximal LAD stent Status post ostial and mid RCA stent December 20 Active smoker Hypertension Hyperlipidemia Plan Wean off IV nitro Transfer to telemetry Groin precautions reviewed Continue aspirin Brilinta and atorvastatin Begin carvedilol 6.25 mg twice daily Begin lisinopril 10 mg daily Exam (Progress Note) - Constitutional Vitals: Period Temp Pulse Resp BP Sys/Stahl Pulse Ox Last 24 Hr 97.7 F-98.7 F 57-109 9-21 114-196/59-97 94-99 Result/EKG - Labs CBC & BMP: 12/21/16 04:20 12/21/16 04:20 Labs: Laboratory Results - last 24 hr 12/20/16 12/21/16 12/21/16 09:34 04:20 04:20 WBC 11.1 RBC 4.32 Hgb 13.2 L Hct 36.0 L MCV 83.3 L MCH 31 MCHC 36.7 H RDW 12.7 Plt Count 197 MPV 9.9 Neut % (Auto) 77.3 H Lymph % (Auto) 10.4 L [place] % (Auto) 11.1 Eos % (Auto) 0.5 Baso % (Auto) 0.2 Neut # (Auto) 8.6 H Lymph # (Auto) 1.2 L [place] # (Auto) 1.2 H Eos # (Auto) 0.1 Baso # (Auto) 0.0 Immature Gran % 0.5 Nucleated RBC % 0.0 Immature Gran # 0.05 Nucleated RBCs # 0.00 Immature Plt Fraction 0.0 Sodium 136 Potassium 3.8 Chloride 106 Carbon Dioxide 21 Anion Gap 12.8 BUN 8 Creatinine 0.80 GFR Calculation 125 BUN/Creatinine Ratio 10.00 Glucose 148 H Calculated Osmolality 272.0 L Calcium 8.0 L Magnesium 2.1 Total Creatine Kinase 59 CK-MB (CK-2) 1.3 CK and CKMB Interp Troponin I 0.415 H D 12/21/16 04:20 WBC RBC Hgb Hct MCV MCH MCHC RDW Plt Count MPV Neut % (Auto) Lymph % (Auto) [place] % (Auto) Eos % (Auto) Baso % (Auto) Neut # (Auto) Lymph # (Auto) [place] # (Auto) Eos # (Auto) Baso # (Auto) Immature Gran % Nucleated RBC % Immature Gran # Nucleated RBCs # Immature Plt Fraction Sodium 135 L Potassium 3.8 Chloride 106 Carbon Dioxide 23 Anion Gap 9.8 BUN 8 Creatinine 0.80 GFR Calculation 125 BUN/Creatinine Ratio 10.00 Glucose 150 H Calculated Osmolality 270.1 L Calcium 7.9 L Magnesium Total Creatine Kinase 151 D CK-MB (CK-2) 11.7 H D CK and CKMB Interp 7.7 Troponin I 2.620 H D Quality Measures - VTE Contraindication to Mechanical VTE Prophylaxis: Trauma to Legs - Stroke Symptom Onset Unknown: No Specialty Discharge - Follow Up or Referrals
[2016-12-21] MEDS: PANTOPRAZOLE 40 MG TABLET PO SCH (08:48)
[2016-12-21] MEDS: TICAGRELOR 90 MG TABLET PO SCH ×2 (08:48→21:46)
[2016-12-21] MEDS: ASPIRIN EC 81 MG TABLET PO SCH (08:48)
[2016-12-21] MEDS: LISINOPRIL 10 MG TABLET PO SCH (09:05)
[2016-12-21] MEDS: CARVEDILOL 6.25 MG TABLET PO SCH ×2 (09:05→21:47)
[2016-12-21] MEDS: ATORVASTATIN 20 MG TABLET PO SCH (21:46)
--- NOTE | 2016-12-22 08:02 | Cardiology Progress Note ---
Cardiology - PN: Subj Interval history: Cardiology note 61-year-old man status post non-Q-wave posterior infarction with intermediate stent and LAD stent December 19. Status post ostial and mid RCA stent December 20, 2016. Blood pressure 134/70 off IV nitro. Telemetry shows sinus rhythm in the 70s O2 sat 98% on room air. No pain or shortness of breath. Good appetite. Regular rhythm no gallop or murmur Decreased breath sounds but clear Abdomen benign. Both groin soft and dry. Small bruise in the right groin only. Good pulses distally. Lab data White count 11.1 hemoglobin 13.2 hematocrit 36.0 Sodium 135 potassium 3.8 chloride 106 CO2 23 BUN 8 creatinine 0.80 Glucose 150 magnesium 2.1 Impression Status post posterior non-Q-wave infarction December 19 with intermediate branch stent and proximal LAD stent Status post ostial and mid RCA stent December 20 Smoker Hypertension Hyperlipidemia Plan Transfer to telemetry Continue aspirin Brilinta and atorvastatin Groin precautions reviewed again Lisinopril 10 mg daily Home tomorrow Exam (Progress Note) - Constitutional Vitals: Period Temp Pulse Resp BP Sys/Stahl Pulse Ox Last 24 Hr 97.8 F-99.5 F 58-90 13-23 78-146/42-85 91-98 Result/EKG - Labs CBC & BMP: 12/21/16 04:20 12/21/16 04:20 Quality Measures - VTE Contraindication to Mechanical VTE Prophylaxis: Trauma to Legs - Stroke Symptom Onset Unknown: No Specialty Discharge - Follow Up or Referrals
[2016-12-22] MEDS: LISINOPRIL 10 MG TABLET PO SCH (08:22)
[2016-12-22] MEDS: TICAGRELOR 90 MG TABLET PO SCH ×2 (08:22→21:49)
[2016-12-22] MEDS: ASPIRIN EC 81 MG TABLET PO SCH (08:22)
[2016-12-22] MEDS: CARVEDILOL 6.25 MG TABLET PO SCH ×2 (08:22→21:49)
[2016-12-22] MEDS: PANTOPRAZOLE 40 MG TABLET PO SCH (08:22)
[2016-12-22] MEDS: ATORVASTATIN 20 MG TABLET PO SCH (21:49)
[2016-12-23] MEDS: LISINOPRIL 10 MG TABLET PO SCH (09:10)
[2016-12-23] MEDS: PANTOPRAZOLE 40 MG TABLET PO SCH (09:10)
[2016-12-23] MEDS: CARVEDILOL 6.25 MG TABLET PO SCH (09:10)
[2016-12-23] MEDS: ASPIRIN EC 81 MG TABLET PO SCH (09:10)
[2016-12-23] MEDS: TICAGRELOR 90 MG TABLET PO SCH (09:10)
--- NOTE | 2016-12-23 11:56 | Cardiology Progress Note ---
Cardiology - PN: Subj Interval history: Cardiology note status post non-Q-wave posterior infarction with intermediate stent and LAD stent December 19. Status post ostial and mid RCA stent December 20, 2016. Telemetry shows steady rhythm in the 60s and 70s Blood pressure 134/76 in the right arm by me No pain. Regular rhythm no murmur or gallop. Decreased breath sounds but clear. Abdomen benign. No leg edema Impression Status post posterior non-Q-wave infarction December 19 with intermediate branch stent and proximal LAD stent. EF 50-55% with inferoapical hypokinesis Status post ostial and mid RCA stent December 20 Active smoker Hyperlipidemia Hypertension Plan Home today Continue aspirin 81 mg daily and Brilinta 90 mg twice daily Continue atorvastatin 20 mg daily Continue lisinopril 10 mg daily Continue Coreg 6.25 g twice daily No smoking. Patient fully informed that continued smoking does increase his chance for another heart attack and for aggressive disease progression. He declines Wellbutrin or Chantix Office visit with EKG in 1 week Exam (Progress Note) - Constitutional Vitals: Period Temp Pulse Resp BP Sys/Stahl Pulse Ox Last 24 Hr 97 F-100.6 F 68-77 15-20 73-139/60-70 97-99 Result/EKG - Labs CBC & BMP: 12/21/16 04:20 12/21/16 04:20 Quality Measures - VTE Contraindication to Mechanical VTE Prophylaxis: Trauma to Legs - Stroke Symptom Onset Unknown: No Specialty Discharge - Follow Up or Referrals
[2016-12-23 12:18] VITALS: BP 139/66
--- NOTE | 2016-12-23 12:55 | Discharge Summary ---
Hospital Course - Hospital Course Hospital Course: Mr. Alaniz is a 61 y/o WM who presented to the hospital on 12/19/16 with complaints of left sided chest pain radiating to his neck and down his left arm concerning for angina. He had an abnormal EKG and elevated troponin and subsequently underwent LHC for NSTEMI. He received a successful proximal LAD stent and successful ostial intermediate stent. He was noted to have EF of 50-55% with inferoapical hypokinesis. He was taken back to the [facility] on 12/20/16 for planned PCI of the RCA and received successful ostial and mid RCA stents. His post catheterization course has been uncomplicated. His left groin looks good and is without bleeding, hematoma, or bruit. His right groin looks good, has a small bruise but no bleeding, hematoma, or bruit. His distal pulses are 2+ bilaterally. He has been encouraged to stop smoking and declines the aid of Wellbutrin or Chantix. During admission, he was noted to have an elevated hemoglobin A1c of 6.9. At discharge, we will start him on Metformin 500mg PO BID. He will need to follow up with a primary care provider within 1 week. He will continue on dual antiplatelet therapy with aspirin and brilinta, although we may need to consider swapping him to Plavix after 1 month of brilinta therapy. He will also be discharged home on Lisinopril 10mg po daily, Coreg 6.25mg po BID, and Atorvastatin 20mg PO QHS. He will be given a 1 month hand written prescription for Brilinta 90mg po BID. I have sent a 1 year prescription for brilinta to his pharmacy of choice so he is able to use the Brilinta discount card. He will follow up with Dr. Christina in clinic in 1 week with an EKG. Addendum Patient examined chart reviewed and discussed with his sister Marilyn Routine groin precautions were again reemphasized. I reminded him not to interrupt his dual antiplatelet therapy with aspirin and Brilinta No smoking Office visit with EKG 1 week as scheduled - Time spent with patient Time with patient DS: Less than 30 minutes Diagnosis - Discharge Diagnosis (1) NSTEMI (non-ST elevated myocardial infarction) Status: Acute (2) Diabetes mellitus Status: Acute (3) Hyperlipidemia Status: Acute (4) Tobacco abuse Status: Chronic Specialty Discharge - Follow Up or Referrals Follow up with: Lasha Christina MD [Physician] - 1 Week (Follow up with Dr. Christina in 1 week with an EKG. ) Discharge Plan - Discharge Data Disposition: Disch To Home/Self Care Condition at Discharge: Stable Discharge Diet: diabetic diet, heart healthy Activity: no lifting (Do not lift over 5 pounds x1 week. ) Hygiene: may shower (Do not suberge cath sites beneath water x1 week. ) Weight Bearing at Discharge: full weight bearing Contact your physician if you experience:: fever over 101, Difficulty voiding, Redness or swelling, Nausea/Vomiting, Shortness of breath, Bleeding, pain uncontrolled by pain medications - Discharge Medications New Atorvastatin [Lipitor] 20 mg PO BEDTIME #30 tablet Lisinopril [Prinivil] 10 mg PO DAILY #30 tablet Nitroglycerin Sl Tab [Nitrostat] 0.4 mg SL Q5M PRN #1 bottle PRN Reason: Chest Pain Ticagrelor [Brilinta] 90 mg PO BID #180 tablet Aspirin EC Tab 81 mg PO DAILY #30 tablet Carvedilol [Coreg] 6.25 mg PO BID #60 tablet - Follow Up or Referral Follow Up: Lasha Christina MD [Physician] - 1 Week (Follow up with Dr. Christina in 1 week with an EKG. ) - Forms/Instructions Instructions: Myocardial Infarction (GEN), Coronary Artery Disease (GEN), Left Heart Catheterization (DC), How to Stop Smoking (GEN), Heart Healthy Diet (GEN) , Cigarette Smoking and Your Health (GEN), Coronary Intravascular Stent Placement (DC), Diabetes Mellitus Type 2 in Adults (DC) Additional Discharge Instructions: He MUST follow up with a primary care provider within 1 week to further discuss diabetes management. Exam - Constitutional Vitals: Period Temp Pulse Resp BP Sys/Stahl Pulse Ox Last 24 Hr 97.9 F-100.5 F 62-77 15-20 73-139/60-70 97-99 Exam: General appearance: Appears well. Pleasant and cooperative. Overweight, no acute distress. Head exam: Present: normal inspection, normocephalic, atraumatic. Absent: hematoma, laceration Eye exam: Present: EOMI. Absent: conjunctival injection, nystagmus, periorbital swelling, scleral icterus, laceration to eyelids, jaundice Pupils: Present: PERRL. Absent: constricted, dilated, fixed, irregular, unequal ENT exam: Present: normal exam, normal external ear exam, mucous membranes moist. Neck exam: Present: normal inspection, midline trachea. Absent: masses, lymphadenopathy, tenderness, thyromegaly, carotid bruit Respiratory exam: Present: clear to auscultation bilaterally. Absent: accessory muscle use, chest wall tenderness, rales, rhonchi, wheezing. Cardiovascular exam: Present: regular rate and rhythm. Absent: gallop, JVD, rubs, murmur GI/Abdominal exam: Present: normal bowel sounds, soft. Absent: distended, firm , hernia, mass, tenderness. Extremities exam: Present: Normal Gait, No Clubbing, No Cyanosis, Upper Extr. Pulses 2+, Lower Extr. Pulses 2+, No edema. Capillary refill less than 3 seconds. Musculoskeletal: Present: No Fluid Collection, No Pain, Normal Range of Motion Neurological exam: Present: awake, alert, oriented X3, Moves all extremities well without hemiparesis or paralysis. Grossly intact without resting or essential tremor Psychiatric exam: Present: normal affect, normal mood Skin exam: Present: normal color, warm, dry, intact. Absent: cyanosis, diaphoretic, rash, urticaria Right groin: Small area of ecchymosis. No bleeding, hematoma, or bruit at site. Left groin: No bleeding, hematoma, or bruit at site. Discharge Results Procedures and tests throughout hospitalization: Pending Orders 12/20/16 09:04 CL heart Routine [facility] 12/19/16: Selective coronary angiography The left main trunk is widely patent and trifurcates. The LAD is a large vessel wraps on the apex. There is an 80% stenosis after the first septal and diagonal branch. The diagonal branch is patent. There is severe apical LAD disease. The intermediate branch has a 99% ostial stenosis and is quite hazy with FELIZ grade II flow. The circumflex is large and tortuous and has mild irregularities only. The dominant right coronary has a 80% ostial narrowing and an 80% stenosis of the mid vessel. Left ventriculography Ejection fraction 50-55% with inferoapical hypokinesis. No mitral regurgitation. Conclusions #1 LVEDP 10 #2 ejection fraction 50-55% with inferoapical hypokinesis #3 no mitral regurgitation #4 no aortic valve gradient #5 left main trunk-patent #6 LAD-80% proximal after first septal diagonal #7 diagonal branch-patent #8 intermediate branch-99% ostial stenosis, hazy with FELIZ grade II flow #9 circumflex system-large, tortuous, mild irregularities only #10 dominant right coronary-80% ostial and 80% mid stenosis #11 successful proximal LAD stent. An 80% stenosis reduced to mild irregularities with a 3.0 x 18 mm synergy drug-eluting stent. The maximum inflation pressure was 14 socorro for 30 seconds, creating a 3.15 mm lumen. Good result obtained. #12 successful intermediate stent. A 99% ostial hazy stenosis was reduced to mild irregularities with a 3.0 x 12 mm synergy drug-eluting stent, maximum inflation pressure 16 diameters for 30 seconds, creating a 3.21 mm lumen. FELIZ grade III flow restored. Disposition The patient had a small non-Q-wave infarction involving the large intermediate branch which was stented with a 3.0 x 12 mm Synergy drug-coated stent, postdilated 3.21 mm lumen with baptism of FELIZ grade III flow. He also underwent stenting of the proximal LAD with a 3.0 x 18 mm Synergy drug-eluting stent, postdilated 3.15 mm lumen. He will remain on Lovenox and IV nitro and normal saline hydration. He will be brought back to the [facility] for RCA intervention in the next 24-48 hours. Continue aspirin Brilinta and statin therapy. Cine pictures reviewed with his 2 sisters. In addition, he will require aggressive lifestyle change and risk factor modification. -99% ostial stenosis Cath 12/20/16: Conclusions #1 successful mid RCA stent with a 2.5 x 18 mm Zions Alpine drug-eluting stent, maximum inflation pressure 11 socorro for 30 seconds creating a 2.55 mm lumen. #2 successful ostial RCA stent with a 3.5 x 8 mm Zions drug-eluting stent, maximum inflation pressure of 12 emesis for 30 seconds, creating a 3.60 mm lumen. #3 recheck of the left coronary artery demonstrated a widely patent intermediate ostial stent site and widely patent proximal LAD stent site Disposition The patient status post small non-Q-wave posterior infarction December 19 and underwent stenting of the ostial intermediate branch and stenting of the proximal LAD with good results. Today he returned to the [facility] and underwent stenting of the ostial right coronary with a 3.5 x 8 mm Zions drug- eluting stent postdilated 3.60 mm lumen and thinning of the mid right coronary with a 2.5 x 18 mm Zions drug-eluting stent, postdilated to a 2.55 in balloon with good results obtained. He remain on aspirin Brilinta and statin therapy and will continue normal saline hydration. In addition he will require aggressive lifestyle change risk factor modification. Labs on day of discharge: Labs from last 24 hours 12/23/16 12:53 Troponin I 1.270 H D DS: Provider Date of admission: 12/19/16 17:17 Primary care physician: . No PCP Attending physician on admission: Lasha Christina MD Consults: 12/19/16 14:04 Consult to Cardiac Rehabilitation [CONS] Routine Reason for Cardiac Rehabilitation: Risk Factor Modification Other Consult Comment: Evaluate and recommend 12/19/16 17:17 Consult to Cardiac Rehabilitation [CONS] Routine Reason for Cardiac Rehabilitation: Risk Factor Modification Other Consult Comment: Evaluate and recommend 12/20/16 11:51 Consult to Cardiac Rehabilitation [CONS] Routine Reason for Cardiac Rehabilitation: Risk Factor Modification Other Consult Comment: Evaluate and recommend Discharging clinician: KENNEDI Patiño Expected date of discharge: 12/23/16
[2016-12-23] MEDS ORDERED: metFORMIN 500 MG TABLET PO SCH (17:00)
== END 2016-12-23 16:20 | disposition home or self-care (01) | DRG 246 ==
LOC: N.ED 10:37 → N.ICU 14:52 → N.TELEN 12-22 09:41
PROVIDERS: ADMIT Internal Medicine Cardiovascular Disease; ATTEND Internal Medicine Cardiovascular Disease
PROC: CLCCHCL (ICD-10-PCS; 2016-12-19 14:45)